=== PATIENT | female | born 1950 | race Hispanic/Latino ===

== ENCOUNTER → 2021-12-23 | Day surgery (SDC) | payer MEDICARE ==
[~2021-12-23] MED LIST: ALBUTEROL0.63 MG/3 NEB; ALLEGRA ALLERGY60 MG PO; AMLODIPINE BESYL5 MG PO; FENTANYL CITRATE/PF 100MCG/2 ML INJ ONE; FLONASE ALLERG9.9 ML INH; HYOSCYAMINE SULFATE 0.5 MG/ML INJ ONE; LEVOTHYROXINE75 MCG PO; LIDOCAINE HCL 2% LOCAL INJ 5 ML SDV VIAL INJ ONE; MONTELUKAST SOD10 MG PO; PROPOFOL IV EMULSION 10 MG/ML 20 ML VIAL ONE; SIMETHICONE 40 MG/0.6 ML BTL ONE; SIMVASTATIN20 MG PO
[2021-12-23 13:45] VITALS: BP 126/84
== END | disposition home or self-care (01) ==
LOC: OR 11:18
PROVIDERS: ATTEND Internal Medicine Gastroenterology
DX: Z12.11 Encounter for screening for malignant neoplasm of colon (principal); D12.4 Benign neoplasm of descending colon; K31.7 Polyp of stomach and duodenum; K29.50 Unspecified chronic gastritis without bleeding; K31.89 Other diseases of stomach and duodenum; K20.90 Esophagitis, unspecified without bleeding; K57.30 Diverticulosis of large intestine without perforation or abscess without bleeding; K21.9 Gastro-esophageal reflux disease without esophagitis; K64.8 Other hemorrhoids; Z71.3 Dietary counseling and surveillance; I10 Essential (primary) hypertension; J45.909 Unspecified asthma, uncomplicated; E03.9 Hypothyroidism, unspecified; E78.5 Hyperlipidemia, unspecified; Z79.899 Other long term (current) drug therapy; Z68.25 Body mass index [BMI] 25.0-25.9, adult; Z86.16 Personal history of COVID-19
CPT/HCPCS: 43239; 45385; C9113; J1980; J2001; J2704; J3010; 45378; 45380